=== PATIENT | female | born 1995 | race Caucasian/White ===

== ENCOUNTER → 2018-08-11 16:37 | Emergency (ER) | payer BC ==
[~2018-08-11 16:37] MED LIST: Iohexol 300* (CONTRAST) 10 ML SDV IV ONE; Ketorolac INJ* 30 MG/ML 1 ML VIAL IV PUSH ONE; NS 0.9% 1000 ML** 1,000 ML IV ONE; Ondansetron ODT TAB* 4 MG PO ONE
--- NOTE | 2018-08-11 17:43 | ED ---
GI/ HPI - HPI Summary HPI Summary: 22-year-old female presents with abdominal pain for the past few hours. She states pain is in the right lower quadrant. States she still nauseous and felt ill for the past couple days. She denies any urinary symptoms. No vomiting. She states that it is made the pain worse. she states she had decreased appetite. She's been having low-grade fevers and chills. No previous belly surgeries. Has no medical conditions. Denies any abnormal vaginal discharge. was seen at urgent care and sent here. - History of Current Complaint Chief Complaint: EDAbdPain Time Seen by Provider: 08/11/18 17:30 Stated Complaint: I THINK I HAVE APPENDICITIS PER PT Pain Intensity: 6 - Allergy/Home Medications Allergies/Adverse Reactions: Allergies Allergy/AdvReac Type Severity Reaction Status Date / Time No Known Allergies Allergy Verified 08/11/18 17:08 Home Medications: Home Medications Bupropion XL* [Wellbutrin XL *] 450 mg PO DAILY 08/11/18 [History Confirmed ] Cetirizine* [ZyrTEC 10 MG TAB*] 10 mg PO DAILY 08/11/18 [History Confirmed 08/11] Cholecalciferol TAB* [Vitamin D TAB*] 1,000 unit PO DAILY 08/11/18 [History Confirmed 08/11/18] Multivitamin [Multivitamins] 1 cap PO DAILY 08/11/18 [History Confirmed 08/11/18 ] PMH/Surg Hx/FS Hx/Imm Hx Endocrine/Hematology History: Denies: Hx Anticoagulant Therapy Respiratory History: Denies: Hx Asthma Infectious Disease History: No Infectious Disease History: Denies: Traveled Outside the [place] in Last 30 Days - Family History Known Family History: Positive: Non-Contributory - Social History Alcohol Use: None Substance Use Type: Reports: None Smoking Status (MU): Never Smoked Tobacco Review of Systems Negative: Fever Negative: Chest Pain Negative: Shortness Of Breath Positive: Abdominal Pain, Nausea. Negative: Vomiting, Diarrhea All Other Systems Reviewed And Are Negative: Yes Physical Exam Triage Information Reviewed: Yes Vital Signs On Initial Exam: Initial Vitals Temp Pulse Resp BP Pulse Ox 98.7 F 89 16 128/90 100 08/11/18 17:05 08/11/18 17:05 08/11/18 17:05 08/11/18 17:05 08/11/18 17:05 Vital Signs Reviewed: Yes Appearance: Positive: Well-Appearing Skin: Positive: Warm, Dry Head/Face: Positive: Normal Head/Face Inspection Eyes: Positive: Normal ENT: Positive: Pharynx normal Respiratory/Lung Sounds: Positive: Clear to Auscultation, Breath Sounds Present Cardiovascular: Positive: Normal, RRR Abdomen Description: Positive: Soft, Other: - tenderness in RLQ, neg obturator Bowel Sounds: Positive: Present Musculoskeletal: Positive: Normal Neurological: Positive: Normal Psychiatric: Positive: Normal Diagnostics - Vital Signs Vital Signs Temp Pulse Resp BP Pulse Ox 08/11/18 17:05 98.7 F 89 16 128/90 100 - Laboratory Result Diagrams: 08/11/18 17:55 08/11/18 17:55 Lab Statement: Any lab studies that have been ordered have been reviewed, and results considered in the medical decision making process. - CT abd CT Interpretation Completed By: Radiologist Summary of CT Findings: IMPRESSION: 1. The appendix is unremarkable. 2. No other acute CT pathology. Re-Evaluation - Re-Evaluation First Eval Change: Unchanged Comment: declined pain medication Second Eval Re-Evaluation Time: 21:03 Change: Unchanged Comment: discussed results, no appendicitis seen GIGU Course/Dx - Course Course Of Treatment: 22-year-old female presents with abdominal pain for the past few hours. She states pain is in the right lower quadrant. States she still nauseous and felt ill for the past couple days. She denies any urinary symptoms. No vomiting. She states that it is made the pain worse. she states she had decreased appetite. She's been having low-grade fevers and chills. No previous belly surgeries. Has no medical conditions. Denies any abnormal vaginal discharge. was seen at urgent care and sent here. on exam tenderness in RLQ. neg obturator. wbc normal. crp normal. patient is too large to see appendix on ultrasound. CT shows no findings of appendicitis. discussed could be viral. told to tyenlol or ibuprofen for pain. patient understand and agrees with plan. - Diagnoses Differential Diagnoses - Female: Appendicitis, Ovarian Cyst, Urinary Tract Infection Provider Diagnoses: Abdominal pain Discharge - Sign-Out/Discharge Documenting (check all that apply): Patient Departure Patient Received Moderate/Deep Sedation with Procedure: No - Discharge Plan Condition: Good Disposition: HOME Patient Education Materials: Abdominal Pain (ED) Referrals: [facility] [place] [facility] George,CHRIS [DemetriBUSINESS, APPLICATION, OTHER] - Additional Instructions: Your pain is not caused by any surgical emergency Drink small amounts of fluid as tolerated When able to eat follow BRAT diet: Bananas, rice, applesauce, toast Take ibuprofen or Tylenol for pain as needed every [address] up [address] [facility] within 5 days if no improvement Return to ED if develop any new or worsening symptoms - Billing Disposition and Condition Condition: GOOD Disposition: Home
[2018-08-11 18:02] LABS: Hematocrit 39 % (33-41); Hemoglobin 13.3 g/dL (12.0-16.0); Mean Corpuscular HGB Conc 34 g/dL (31-36); Mean Corpuscular Hemoglobin 29 pg (27-31); Mean Corpuscular Volume 85 fL (80-97); Mean Platelet Volume 7.7 fL (7.4-10.4); Platelet Count 292 10^3/uL (150-450); Red Blood Count 4.58 10^6 /uL (3.70-4.87); Red Cell Distribution Width 13 % (10.5-15); White Blood Count 7.7 10^3/uL (3.5-10.8)
[2018-08-11 18:09] LABS: ABS Basophils 0 10^3/ul (0-0.2); ABS Eosinophils 0 10^3/ul (0-0.6); ABS Lymphocytes 1.8 10^3/ul (1.0-4.8); ABS Monocytes 0.6 10^3/ul (0-0.8); ABS Neutrophils 5.2 10^3/ul (1.5-7.7); ABS Nucleated RBC 0 10^3/ul; Eosinophil % 0.5 %; Lymphocyte % 23.5 %; Nucleated Red Blood Cells % 0.1
[2018-08-11 18:23] LABS: ALT 21 U/L (7-52); AST 17 U/L (13-39); Albumin 4.9 g/dL (3.2-5.2); Alkaline Phosphatase 72 U/L (34-104); Anion Gap 6 mmol/L (2-11); BUN/Creatinine Ratio 10.3 (8-20); Blood Urea Nitrogen 8 mg/dL (6-24); C Reactive Protein < 1.00 mg/L (<8.01); CO2 Carbon Dioxide 29 mmol/L (22-32); Calcium 9.8 mg/dL (8.6-10.3); Chloride 106 mmol/L (101-111); EGFR African American 112.8 (>60); EGFR Non-African American 93.2 (>60); Globulin 2.4 g/dL (2-4); Glucose 91 mg/dL (70-100); Sodium 141 mmol/L (135-145); Total Protein 7.3 g/dL (6.4-8.9)
[2018-08-11 18:27] LABS: HCG Pregnancy < 0.60 mIU/mL
[2018-08-11 21:06] LABS: Urine Appearance Clear; Urine Bilirubin Negative (Negative); Urine Blood Negative (Negative); Urine Color Colorless; Urine Glucose Negative (Negative); Urine Ketones Negative (Negative); Urine Nitrite Negative (Negative); Urine Protein Negative (Negative); Urine Specific Gravity 1.032 (1.010-1.030); Urine Urobilinogen Negative (Negative)
[2018-08-11 21:40] VITALS: BP 121/70
== END | disposition home or self-care (01) ==
LOC: ED 16:37
DX: R10.31 Right lower quadrant pain (principal); R11.0 Nausea
CPT/HCPCS: 36415; 74177; 80053; 81003; 83690; 84702; 85025; 86140; 96374; 99283; A9270-GY; J1885; Q9967

== ENCOUNTER 2019-02-07 13:31 | Emergency (ER) | payer BC ==
[2019-02-07 15:32] VITALS: BP 127/65
--- NOTE | 2019-02-07 16:05 | UC ---
FLU HPI - HPI Summary HPI Summary: 23-year-old female presents with complaints of cough for the past 10 days. States over the last 3-4 days cough has become productive for green sputum, bilateral chest wall pain with coughing, she has developed general malaise, headache, and is experiencing body aches and fatigue. Symptoms are associated with mild nasal congestion. Denies fever, chills, ear pain, sore throat, wheezing, shortness of breath, abdominal pain, nausea, or vomiting. - History of Current Complaint Chief Complaint: UCGeneralIllness Stated Complaint: COUGH CHILLS BODYACHES Time Seen by Provider: 02/07/19 15:34 Hx Obtained From: Patient Hx Last Menstrual Period: IUD Pain Intensity: 7 - Allergy/Home Medications Allergies/Adverse Reactions: Allergies Allergy/AdvReac Type Severity Reaction Status Date / Time No Known Allergies Allergy Verified 02/07/19 15:33 PMH/Surg Hx/FS Hx/Imm Hx Previously Healthy: Yes Psychological History: Depression Other History Of: Negative For: Anticoagulant Therapy - Surgical History Surgical History: Yes Surgery Procedure, Year, and Place: tonsillectomy - Family History Known Family History: Positive: Non-Contributory - Social History Occupation: Student Lives: Dormitory/Roommates Alcohol Use: None Substance Use Type: None Smoking Status (MU): Never Smoked Tobacco Review of Systems All Other Systems Reviewed And Are Negative: Yes Constitutional: Positive: Chills, Fatigue. Negative: Fever Skin: Negative: Rash Eyes: Negative: Drainage, Eye Redness ENT: Positive: Nasal Discharge, Sinus Congestion. Negative: Sore Throat, Ear Ache, Sinus Pain/Tenderness Respiratory: Positive: Cough. Negative: Shortness Of Breath Cardiovascular: Negative: Palpitations Gastrointestinal: Negative: Abdominal Pain, Vomiting, Diarrhea, Nausea Genitourinary: Positive: Negative Musculoskeletal: Positive: Myalgia Neurological: Positive: Headache Is Patient Immunocompromised?: No Physical Exam - Summary Physical Exam Summary: GENERAL APPEARANCE: Well developed, well nourished, alert and cooperative, and appears to be in no acute distress. EYES: Conjunctiva clear. No drainage. EARS: External auditory canals and tympanic membranes clear, hearing grossly intact. NOSE: Mild nasal congestion. No nasal discharge. THROAT: Pharynx normal. Tonsils surgically absent. Uvula midline. NECK: Neck supple, non-tender without lymphadenopathy. CARDIAC: Normal S1 and S2. No S3, S4 or murmurs. Rhythm is regular. There is no peripheral edema, cyanosis or pallor. Extremities are warm and well perfused. Capillary refill is less than 2 seconds. Peripheral pulses intact. LUNGS: Clear to auscultation without rales, rhonchi, wheezing or diminished breath sounds. Dry, non-productive cough. ABDOMEN: Positive bowel sounds. Soft, nondistended, nontender. No guarding or rebound. No masses or hepatosplenomegally. MUSKULOSKELETAL: ROM intact to all extremities. No joint erythema or tenderness. Normal muscular development. Normal gait. SKIN: Skin normal color, texture and turgor with no lesions or eruptions. Triage Information Reviewed: Yes Vital Signs: Initial Vital Signs Temp 97.9 F 02/07/19 15:26 Pulse 80 02/07/19 15:26 Resp 16 02/07/19 15:26 BP 127/65 02/07/19 15:26 Pulse Ox 100 02/07/19 15:26 Vital Signs Reviewed: Yes Flu Course/Dx - Course Course Of Treatment: 23-year-old female presents with complaints of cough for the past 10 days. States over the last 3-4 days cough has become productive for green sputum, bilateral chest wall pain with coughing, she has developed general malaise, headache, and is experiencing body aches and fatigue. Symptoms are associated with mild nasal congestion. Denies fever, chills, ear pain, sore throat, wheezing, shortness of breath, abdominal pain, nausea, or vomiting. Afebrile. Vital signs stable. Patient had mild nasal congestion without discharge, clear bilateral breath sounds, dry nonproductive cough, and otherwise unremarkable exam. Considering the duration and worsening of the patient's symptoms we will treat her for acute bronchitis and start her on azithromycin 2 tabs today followed by one tablet for the next 4 days. Also recommending symptomatic treatment including Tessalon Perles 1 capsule every 8 hours as needed for cough. She is to return here or follow up at the [facility] in 5 days if symptoms are not improving. Anticipatory guidance warning symptoms were reviewed with the patient. Verbalizes understanding and agrees with plan of care. - Differential Dx/Diagnosis Differential Diagnosis/HQI/PQRI: Bronchitis, Influenza, Upper Respiratory Infection Provider Diagnosis: Acute bronchitis Discharge ED - Sign-Out/Discharge Documenting (check all that apply): Patient Departure All imaging exams completed and their final reports reviewed: No Studies - Discharge Plan Condition: Stable Disposition: HOME Prescriptions: Azithromyxin JAGUAR (NF) [Z-Jaguar (Zithromax) 250 mg tabs #6] 2 tab PO .TODAY, THEN 1 DAILY #6 tab Benzonatate CAP* [Tessalon 100 MG CAP*] 100 mg PO TID PRN #21 cap PRN Reason: Cough Patient Education Materials: Upper Respiratory Infection (ED) Referrals: No Primary Care Phys,NOPCP [Primary Care Provider] - Additional Instructions: Your history and exam are consistent with acute bronchitis. Start azithromycin 2 tabs today then 1 tab a day for the next 4 days. Be aware that the cough with bronchitis may persist for 2-3 weeks even if other symptoms have improved. Get plenty of rest. Drink plenty of fluids. Run a cool mist humidifer in your room at night. Take over the counter acetaminophen (Tylenol) or ibuprofen (Advil, Motrin) according to directions as needed for pain or fever. Take Tessalon Perles 1 cap every 8 hours as needed for cough. Return here or follow up at the [facility] in 5-7 days if symptoms do not improve. Seek immediate medical attention in the emergency room if you have fever greater than 100.5 F despite taking acetaminophen or ibuprofen, have chest pain , difficulty breathing, or have any worsening of symptoms. - Billing Disposition and Condition Condition: STABLE Disposition: Home
== END 2019-02-07 16:21 | disposition home or self-care (01) ==
LOC: UCEAST 13:31
DX: J20.9 Acute bronchitis, unspecified (principal); F32.9 Major depressive disorder, single episode, unspecified
CPT/HCPCS: 99212; G0463

== ENCOUNTER 2019-07-22 10:36 | Emergency (ER) | payer BC ==
--- NOTE | 2019-07-22 13:29 | UC ---
FLU HPI - HPI Summary HPI Summary: 23 yo female presents with flu-like symptoms. She tells me that for the last week she has had fatigue, body aches, sinus pain/pressure/congestion, and sore throat. Reports low grade fever Tmax 100.2F that resolved with ibuprofen. She has been taking mucinex and nyquill with little relief. She did not get a flu shot this year. Denies rash, SOB, chest pain, abdominal pain, n/v. - History of Current Complaint Stated Complaint: SORE THROAT,COUGH,FEVER Time Seen by Provider: 07/22/19 13:29 Hx Obtained From: Patient Hx Last Menstrual Period: IUD Onset/Duration: Gradual Onset Severity Currently: Moderate Severity Initially: Moderate Pain Intensity: 4 Pain Scale Used: 0-10 Numeric - Allergy/Home Medications Allergies/Adverse Reactions: Allergies Allergy/AdvReac Type Severity Reaction Status Date / Time No Known Allergies Allergy Verified 07/22/19 13:40 Home Medications: Home Medications Amoxicillin PO (*) [Amoxicillin 875 MG (*)] 875 mg PO BID #14 tab 07/22/19 [Rx] buPROPion SR TAB* [Wellbutrin SR TAB*] 1 tab PO DAILY 07/22/19 [History Confirmed 07/22/19] PMH/Surg Hx/FS Hx/Imm Hx Psychological History: Anxiety, Depression Other History Of: Negative For: Anticoagulant Therapy - Surgical History Surgical History: Yes Surgery Procedure, Year, and Place: tonsillectomy - Family History Known Family History: Positive: Hypertension - Social History Occupation: Employed Full-time Lives: With Family Alcohol Use: None Substance Use Type: None Smoking Status (MU): Never Smoked Tobacco Review of Systems All Other Systems Reviewed And Are Negative: No Constitutional: Positive: Fatigue, Other - Body aches Skin: Positive: Negative Eyes: Positive: Negative ENT: Positive: Sore Throat, Sinus Congestion, Sinus Pain/Tenderness Respiratory: Positive: Cough Cardiovascular: Positive: Negative Gastrointestinal: Positive: Negative Neurological/Mental Status: Positive: Negative Psychological: Positive: Negative Physical Exam - Summary Physical Exam Summary: GENERAL: NAD. WDWN. No pain distress. SKIN: No rashes, sores, lesions, or open wounds. HEENT: Head: AT/NC Eyes: EOM intact. Conjunctiva clear without inflammation or discharge. Ears: Hearing grossly normal. TMs intact, no bulging, erythema, or edema. Nose: Nasal mucosa mildly swollen and erythematous with yellow/ clear discharge. TTP maxillary and frontal sinus. Positive post nasal drip Throat: Posterior oropharynx without exudates, erythema, or tonsillar enlargement. Uvula midline. NECK: Supple. Nontender. No lymphadenopathy. CHEST: CTAB. No r/r/w. No accessory muscle use. Breathing comfortably and in no distress. CV: RRR. Pulses intact. NEURO: Alert. PSYCH: Age appropriate behavior. Triage Information Reviewed: Yes Vital Signs: Vital Signs: Temp Pulse Resp BP Pulse Ox 97.1 F 84 20 126/70 98 07/22/19 13:36 07/22/19 13:36 07/22/19 13:36 07/22/19 13:36 07/22/19 13:36 Laboratory Tests 07/22/19 07/22/19 13:45 13:48 Influenza A (Rapid) Negative Influenza B (Rapid) Negative Group A Strep Rapid Negative Vital Signs Reviewed: Yes Flu Course/Dx - Course Course Of Treatment: POC strep and flu negative. Sinusitis - given length of symptoms with failure of OTC medications, will treat with anbx at this time. - Differential Dx/Diagnosis Provider Diagnosis: Sinusitis Discharge ED - Sign-Out/Discharge Documenting (check all that apply): Patient Departure All imaging exams completed and their final reports reviewed: No Studies - Discharge Plan Condition: Stable Disposition: HOME Prescriptions: Amoxicillin PO (*) [Amoxicillin 875 MG (*)] 875 mg PO BID #14 tab Patient Education Materials: Sinusitis (ED) Forms: *Work Release Referrals: No Primary Care Phys,NOPCP [Primary Care Provider] - Additional Instructions: If you develop a fever, shortness of breath, chest pain, new or worsening symptoms - please call your PCP or go to the ED immediately. Continue your over the counter medications - Billing Disposition and Condition Condition: STABLE Disposition: Home
[2019-07-22 13:40] VITALS: BP 126/70
[2019-07-22 13:59] LABS: Influenza A Molecular Negative (Negative); Influenza B Molecular Negative (Negative)
== END 2019-07-22 14:14 | disposition home or self-care (01) ==
LOC: UCEAST 10:36
DX: J32.9 Chronic sinusitis, unspecified (principal); J02.9 Acute pharyngitis, unspecified; R53.83 Other fatigue; F41.9 Anxiety disorder, unspecified; F32.9 Major depressive disorder, single episode, unspecified; Z79.899 Other long term (current) drug therapy
CPT/HCPCS: 87651; 99212; G0463

== ENCOUNTER 2019-09-11 11:34 | Emergency (ER) | payer BC ==
[2019-09-11 12:09] VITALS: BP 133/74
--- NOTE | 2019-09-11 12:50 | UC ---
Abdominal Pain Female HPI - HPI Summary HPI Summary: ONSET YESTERDAY OF LOWER ABDOMINAL CRAMPING AND NAUSEA BUT NO VOMITING. ALSO REPORTS SOME MILD DYSURIA AND FREQUENCY. NO BACK PAIN. NO FEVER. HAS 1 MALE SEXUAL PARTNER AND HAS BEEN MONOGAMOUS FOR THE PAST YEAR AND A HALF. MIRENA IUD FOR CONTRACEPTION. DENIES ANY VAGINAL DISCHARGE OR IRRITATION. NOT CONCERNED ABOUT STD. - History of Current Complaint Chief Complaint: UCGU Stated Complaint: URINARY ISSUE Time Seen by Provider: 09/11/19 12:04 Hx Obtained From: Patient Hx Last Menstrual Period: IUD Onset/Duration: Gradual Onset, Lasting Days - 1 DAY, Still Present Timing: Constant Severity Initially: Moderate Severity Currently: Moderate Pain Intensity: 3 Pain Scale Used: 0-10 Numeric Radiates: No Character: Cramping Aggravating Factor(s): Nothing Alleviating Factor(s): Nothing Associated Signs and Symptoms: Positive: Urinary Symptoms, Nausea. Negative: Fever, Back Pain, Blood in Stool, Vaginal Bleeding, Vaginal Discharge, Vomiting , Diarrhea Allergies/Adverse Reactions: Allergies Allergy/AdvReac Type Severity Reaction Status Date / Time No Known Allergies Allergy Verified 09/11/19 12:04 Home Medications: Home Medications buPROPion SR TAB* [Wellbutrin SR TAB*] 1 tab PO DAILY 07/22/19 [History Confirmed 09/11/19] Cetirizine* [ZyrTEC 10 MG TAB*] 10 mg PO DAILY PRN 09/11/19 [History Confirmed 09/11/19] PMH/Surg Hx/FS Hx/Imm Hx Previously Healthy: Yes Other History Of: Negative For: Anticoagulant Therapy - Surgical History Surgical History: Yes Surgery Procedure, Year, and Place: tonsillectomy, cholecystectomy - Family History Known Family History: Positive: Hypertension Family History: GRANDMOTHER - KIDNEY STONE - Social History Alcohol Use: Occasionally Substance Use Type: None Smoking Status (MU): Never Smoked Tobacco Review of Systems All Other Systems Reviewed And Are Negative: Yes Constitutional: Positive: Negative Respiratory: Positive: Negative Cardiovascular: Positive: Negative Gastrointestinal: Positive: Nausea. Negative: Vomiting, Diarrhea Genitourinary: Positive: Dysuria, Frequency. Negative: Vaginal/Penile Burning, Vaginal/Penile Itching, Vaginal/Penile Discharge Physical Exam Triage Information Reviewed: Yes Appearance: Well-Appearing, No Pain Distress, Well-Nourished Vital Signs: Initial Vital Signs Temp 98.0 F 09/11/19 12:01 Pulse 75 09/11/19 12:01 Resp 16 09/11/19 12:01 BP 133/74 09/11/19 12:01 Pulse Ox 98 09/11/19 12:01 Laboratory Tests 09/11/19 09/11/19 12:15 12:21 POC Urine Color Light yellow POC Urine Clarity Clear POC Urine pH 7.0 POC Ur Specif [place] 1.015 POC Urine Protein Negative POC Ur Glucose (UA) Negative POC Urine Ketones Negative POC Urine Blood Trace-intact A POC Urine Nitrite Negative POC Urine Bilirubin Negative POC Urine Urobilinogen 0.2 POC U Leukocyte Esteras Negative POC Ur Test Negative Vital Signs Reviewed: Yes Eyes: Positive: Conjunctiva Clear ENT: Positive: Hearing grossly normal Neck: Positive: Supple Respiratory: Positive: No respiratory distress, No accessory muscle use Cardiovascular: Positive: Pulses Normal Abdomen Description: Positive: Soft, Other: - TTP ACROSS LOWER ABDOMEN. NO REBOUND OR RIGIDITY. NEG OBTURATOR. NEG PSOAS SIGN. Negative: CVA Tenderness (R ), CVA Tenderness (L), Distended, Guarding Musculoskeletal: Positive: No Edema Neurological: Positive: Alert Psychological: Positive: Age Appropriate Behavior Skin: Negative: Rashes Abd Pain Female Course/Dx - Course Course Of Treatment: URINE DIP WITH TRACE BLOOD. URINE NEGATIVE. GIVEN PATIENT'S SYMPTOMS WILL GO AHEAD AND SEND FOR CULTURE WELL TESTING FOR GONORRHEA AND CHLAMYDIA. PATIENT LOOKS WELL ON PHYSICAL EXAM. SHE DOES HAVE SOME MODERATE LOWER ABDOMINAL TENDERNESS HOWEVER NO ACUTE ABDOMEN. PATIENT DENIES ANY SYMPTOMS OF VAGINITIS AND DECLINES PELVIC EXAM TODAY. I DISCUSSED WITH PATIENT TRANSFER TO THE EMERGENCY ROOM FOR FURTHER EVALUATION AND PROBABLE IMAGING HOWEVER SHE DECLINES IN FAVOR OF CAREFUL OBSERVATION AT HOME FOR THE TIME BEING. DISCUSSED MY CONCERN FOR OVARIAN CYST VERSUS KIDNEY STONE VERSUS EARLY APPENDICITIS. ALSO ADVISED TO CHECK HER IUD STRINGS. IF SYMPTOMS PERSIST CHECKING IUD PLACEMENT MAY BE WARRANTED. BECAUSE WE HAVE NO APPROPRIATE IMAGING HERE IN THE URGENT CARE TODAY SHE IS TO GO DIRECTLY TO THE EMERGENCY ROOM IF HER SYMPTOMS PERSIST OR WORSEN. - Differential Dx/Diagnosis Provider Diagnosis: Lower abdominal pain Discharge ED - Sign-Out/Discharge Documenting (check all that apply): Patient Departure All imaging exams completed and their final reports reviewed: No Studies - Discharge Plan Condition: Stable Disposition: HOME Patient Education Materials: Abdominal Pain (ED) Referrals: [facility] [Provider Group] - If Needed Deshawn Guzman MD [Primary Care Provider] - If Needed Additional Instructions: URINE TEST TODAY NOT SUGGESTIVE OF UTI. TEST NEGATIVE. YOU HAVE DECLINED TRANSFER TO THE ER TODAY IN FAVOR OF CAREFUL OBSERVATION AT HOME. STAY WELL HYDRATED. OKAY FOR IBUPROFEN IF NEEDED FOR DISCOMFORT. GO TO THE ER WITHOUT FAIL IF YOU DEVELOP WORSENING PAIN, FEVER, NAUSEA/VOMITING, ARIEL BLOOD IN THE URINE OR ANY OTHER CONCERNING SYMPTOMS. CONSIDER OVARIAN CYST VERSUS KIDNEY STONE VERSUS EARLY APPENDICITIS. URINE SPECIMEN SENT FOR BACTERIAL CULTURE, GONORRHEA AND CHLAMYDIA TESTING. WE WILL CALL YOU IF ANY ABNORMAL RESULTS. FOLLOW-UP WITH A LOCAL [facility]. ABDOMINAL PAIN: There are many causes of abdominal pain. Pain can mean a serious problem requiring surgery (such as appendicitis), or an innocent problem which goes away on its own (such as a viral infection). Often, time must pass to determine the cause of pain. The physician does not feel that hospitalization is necessary, at present. Conditions may change, however, within the next 24 hours. GO TO THE ER WITHOUT FAIL IF ANY OF THE FOLLOWING OCCUR: 1) Pain which becomes more severe, steady, or becomes concentrated in one specific area. Also, pain which is more severe with movement or coughing. 2) Vomiting which persists or becomes more frequent. 3) Blood in the vomitus, urine, or bowel movements. Blood in the stool may have a tarry or black appearance. 4) Shaking chills or fever greater than 100 degrees F. 5) The abdomen becomes more distended or swollen. 6) Bowel movements cease. 7) Failure to improve as expected. OBSERVATION FOR APPENDICITIS: At this time, the abdominal pain does not seem to be appendicitis. Our next "test" will be passage of time. If you have early appendicitis, signs will appear to help us make the diagnosis. Most of the time, the pain goes away. In these cases, the pain is usually due to a virus in the lymph glands near the appendix, or due to an ovarian cyst or ovulation. Unless the pain is gone, you should come back for a recheck. This is usually done in 8 to 12 hours. Be sure you understand your follow-up instructions. GO TO THE ER IMMEDIATELY IF: (1) the pain becomes much more severe and sharply increases with movement or coughing, (2) vomiting becomes frequent, (3) there is blood in the vomit, urine, or bowel movements, (4) there are shaking chills or fever, or (5) the abdomen becomes more distended or swollen. - Billing Disposition and Condition Condition: STABLE Disposition: Home
[2019-09-12 12:33] LABS: Chlamydia trachomatis NAA Negative (Negative); Neisseria gonorrhoeae (GC) NAA Negative (Negative)
--- NOTE | 2019-09-13 08:27 | UC ---
- Progress Note Progress Note: Please call to advise that urine culture and GC and Chlamydia are negative. Was seen for abdominal pain and cramping. Please ensure that her symptoms have either resolved or that she is following up with gynecology as advised. IF pain the same or worse and cannot see hay stacker, should proceed to the ER for work up. Course/Dx - Diagnoses Provider Diagnoses: Lower abdominal pain Discharge ED - Sign-Out/Discharge Documenting (check all that apply): Post-Discharge Follow Up All imaging exams completed and their final reports reviewed: No Studies - Discharge Plan Condition: Stable Disposition: HOME Patient Education Materials: Abdominal Pain (ED) Referrals: [facility] [Provider Group] - If Needed Deshawn Guzman MD [Primary Care Provider] - If Needed Additional Instructions: URINE TEST TODAY NOT SUGGESTIVE OF UTI. TEST NEGATIVE. YOU HAVE DECLINED TRANSFER TO THE ER TODAY IN FAVOR OF CAREFUL OBSERVATION AT HOME. STAY WELL HYDRATED. OKAY FOR IBUPROFEN IF NEEDED FOR DISCOMFORT. GO TO THE ER WITHOUT FAIL IF YOU DEVELOP WORSENING PAIN, FEVER, NAUSEA/VOMITING, ARIEL BLOOD IN THE URINE OR ANY OTHER CONCERNING SYMPTOMS. CONSIDER OVARIAN CYST VERSUS KIDNEY STONE VERSUS EARLY APPENDICITIS. URINE SPECIMEN SENT FOR BACTERIAL CULTURE, GONORRHEA AND CHLAMYDIA TESTING. WE WILL CALL YOU IF ANY ABNORMAL RESULTS. FOLLOW-UP WITH A LOCAL [facility]. ABDOMINAL PAIN: There are many causes of abdominal pain. Pain can mean a serious problem requiring surgery (such as appendicitis), or an innocent problem which goes away on its own (such as a viral infection). Often, time must pass to determine the cause of pain. The physician does not feel that hospitalization is necessary, at present. Conditions may change, however, within the next 24 hours. GO TO THE ER WITHOUT FAIL IF ANY OF THE FOLLOWING OCCUR: 1) Pain which becomes more severe, steady, or becomes concentrated in one specific area. Also, pain which is more severe with movement or coughing. 2) Vomiting which persists or becomes more frequent. 3) Blood in the vomitus, urine, or bowel movements. Blood in the stool may have a tarry or black appearance. 4) Shaking chills or fever greater than 100 degrees F. 5) The abdomen becomes more distended or swollen. 6) Bowel movements cease. 7) Failure to improve as expected. OBSERVATION FOR APPENDICITIS: At this time, the abdominal pain does not seem to be appendicitis. Our next "test" will be passage of time. If you have early appendicitis, signs will appear to help us make the diagnosis. Most of the time, the pain goes away. In these cases, the pain is usually due to a virus in the lymph glands near the appendix, or due to an ovarian cyst or ovulation. Unless the pain is gone, you should come back for a recheck. This is usually done in 8 to 12 hours. Be sure you understand your follow-up instructions. GO TO THE ER IMMEDIATELY IF: (1) the pain becomes much more severe and sharply increases with movement or coughing, (2) vomiting becomes frequent, (3) there is blood in the vomit, urine, or bowel movements, (4) there are shaking chills or fever, or (5) the abdomen becomes more distended or swollen. - Billing Disposition and Condition Condition: STABLE Disposition: Home
== END 2019-09-11 12:45 | disposition home or self-care (01) ==
LOC: UCEAST 11:34
DX: R10.30 Lower abdominal pain, unspecified (principal); R11.0 Nausea; R30.0 Dysuria; R35.0 Frequency of micturition; Z32.02 Encounter for pregnancy test, result negative
CPT/HCPCS: 81003; 84702; 87086; 87491; 87591; 99211; G0463